=== PATIENT | male | born 1960 | race Caucasian/White ===

== ENCOUNTER 2016-10-18 05:47 | Inpatient (IN) | payer OTHER ==
[~2016-10-18] VITALS: Ht 180.3 cm; Wt 93.3 kg
[2016-10-18] MEDS ORDERED: ACETAMINOPHEN 325 MG TAB PO STA (06:00)
[2016-10-18] MEDS ORDERED: SODIUM CHLORIDE 0.9% 1L BAG IV* STA (06:00)
[2016-10-18] MEDS ORDERED: METHYLPREDNISOLONE 125 MG INJ IV STA (06:00)
[2016-10-18] MEDS ORDERED: LEVOFLOXACIN 750MG/D5W (PMX) 150 ML IVPB ONE (06:00)
[2016-10-18] MEDS ORDERED: ALBUTEROL 0.5% (NEB) 2.5 MG/0.5 ML AMP INH STA (06:00)
[2016-10-18] MEDS ORDERED: IPRATROPIUM (NEB) 0.5 MG/2.5 ML AMP INH STA (06:00)
--- NOTE | 2016-10-18 06:06 | ERA ---
ER Documentation Chief Complaint Date/Time DATE: 10/18/16 TIME: 06:04 Chief Complaint SOB w/ productive cough x 4 days HPI 55-year-old male with an existing history of COPD presents to the emergency department by ambulance complaining of shortness of breath. Patient states he has been having increasing cough and shortness of breath for the last 4 days. Over the last 24 hours, he developed a cough. He has sputum which is nonbloody. He denies chest pain. Patient has no further discomfort. ROS All systems reviewed and are negative except as per history of present illness. Allergies Allergies: Coded Allergies: No Known Drug Allergies (Verified Allergy, Unknown, 10/18/16) FmHx Noncontributory for chief complaint Physical Exam Vitals Vital Signs Date Time Temp Pulse Resp B/P Pulse Ox O2 Delivery O2 Flow Rate FiO2 10/18/16 06:30 124 24 178/102 99 Mask 8.0 10/18/16 06:22 Non Rebreather 10/18/16 06:22 Non Rebreather 10/18/16 06:20 126 28 100 Non Rebreather Mask 15.0 100 10/18/16 05:54 104.3 123 22 149/88 96 Physical Exam GENERAL: Patient is well-developed and well-nourished. He is in moderate to significant respiratory distress HEENT: Pupils equal, round, and reactive to light. EOMI. There is no scleral icterus. NECK: C-spine is soft and supple, there is no meningismus. There is no cervical lymphadenopathy. No tracheal deviation or stridor LUNGS: Patient has increased work of breathing. Patient is tachypneic. Patient is wheezing bilaterally. There is rhonchi bilaterally. There is decreased tidal volume. HEART: Regular rate and rhythm, no murmurs, clicks, rubs or gallops. ABDOMEN: Soft, non-tender, non-distended. There are bowel sounds in all four quadrants. No rebound or guarding. EXTREMITIES: There is no peripheral cyanosis or edema. No focal swelling or erythema. NEURO: The patient moves all four extremities with 5/5 strength. Cranial nerves II - XII are intact. Normal gait. Alert and oriented SKIN: There is no apparent rash or petechiae. HEME/LYMPHATIC: There is no evidence of excessive bruising or lymphedema. PSYCHIATRIC: The patient does not appear anxious or depressed. Result Diagram: 10/18/16 0609 10/18/16 0609 Results 24 hrs Laboratory Tests Test 10/18/16 06:00 10/18/16 06:09 10/18/16 08:12 Arterial Blood HCO3 25.2mmol/L Arterial Blood Base Excess 0mmol/L Arterial Blood Oxygen Saturation 99.5mmHG Martin Test N/A Arterial Blood Gas Puncture Site Right Brachial Arterial Blood Carboxyhemoglobin 0.4% Arterial Blood Date Drawn 10/18/2016 6:20:47 AM Arterial Blood Methemoglobin 0.3% Arterial Blood pCO2 (Temp correct) 43.0mmhg Arterial Blood pH (Temp corrected) 7.386 Arterial Blood pO2 (Temp corrected) 367.4mmHG Blood Gas A-a O2 Differential 302.6mmHg Blood Gas Actual Respiration Rate 28 Blood Gas Critical Value Read Back Mayco BETH Blood Gas Modality MASK - NRB Blood Gas Notified Time 10/18/2016 6:30:55 AM Blood Gas Notified Whom BL Blood Gas Specimen Source Blood arterial Blood Gas Temperature 37.0C FiO2 100.0% Oxyhemoglobin Percent 98.8% Total Hemoglobin 15.6g/dl Activated Partial Thromboplast Time 34.5Sec Alanine Aminotransferase (ALT/SGPT) 55IU/L Albumin 4.0g/dl Albumin/Globulin Ratio 1.21 Alkaline Phosphatase 72IU/L Anion Gap 15 Aspartate Amino Transf (AST/SGOT) 43IU/L Basophils # 0.010^3/ul Basophils % 0.1% Blood Morphology Comment Blood Urea Nitrogen 13mg/dl Calcium Level 9.0mg/dl Carbon Dioxide Level 27mmol/L Chloride Level 103mmol/L Creatinine 1.14mg/dl Direct Bilirubin 0.00mg/dl Eosinophils # 0.010^3/ul Eosinophils % 0.5% Globulin 3.30g/dl Glucose Level 123mg/dl Hematocrit 46.2% Hemoglobin 15.6g/dl INR International Normalized Ratio 1.16 Indirect Bilirubin 0.2mg/dl Lactic Acid Level 1.6mmol/L 1.3mmol/L Lymphocytes # 0.410^3/ul Lymphocytes % 3.9% Mean Corpuscular Hemoglobin 30.7pg Mean Corpuscular Hemoglobin Concent 33.8g/dl Mean Corpuscular Volume 90.8fl Mean Platelet Volume 9.2fl Monocytes # 0.810^3/ul Monocytes % 7.9% Neutrophils # 8.710^3/ul Neutrophils % 87.6% Nucleated Red Blood Cells # 0.010^3/ul Nucleated Red Blood Cells % 0.0/100WBC Platelet Count 75927^3/UL Potassium Level 4.0mmol/L Prothrombin Time 14.8Sec Prothrombin Time Ratio 1.2 Red Blood Count 5.0910^6/ul Red Cell Distribution Width 15.0% Sodium Level 141mmol/L Total Bilirubin 0.2mg/dl Total Protein 7.3g/dl Troponin I 0.019ng/ml Urine Bilirubin NEGATIVE Urine Clarity CLEAR Urine Color LT. YELLOW Urine Glucose NEGATIVE% Urine Hemoglobin NEGATIVE Urine Ketones NEGATIVE Urine Leukocyte Esterase NEGATIVE Urine Nitrite NEGATIVE Urine Specific [place] 1.015 Urine Total Protein NEGATIVE Urine Urobilinogen 0.2 E.U./dL Urine pH 7.0 White Blood Count 9.910^3/ul Current Medications Medications (Trade) Dose Ordered Sig/Uma Route PRN Reason Start Time Stop Time Status Last Admin Dose Admin Sodium Chloride (NS) 2,820 ml BOLUS OVER 2 HOURS STAT IV* 10/18/16 06:00 10/18/16 06:03 DC 10/18/16 06:17 Acetaminophen 650 mg 650 mg ONCE STAT PO 10/18/16 06:00 10/18/16 06:04 DC 10/18/16 06:17 Levofloxacin/ Dextrose (Levaquin 750 Mg/ D5W 150 ml (Pmx)) 150 ml @ 100 mls/hr ONCE ONCE IVPB 10/18/16 06:00 10/18/16 07:29 DC 10/18/16 06:58 Albuterol (Proventil 0.5% (Neb)) 10 mg ONCE STAT INH 10/18/16 06:00 10/18/16 06:04 DC 10/18/16 06:15 Ipratropium [place] (Atrovent 0.02% (Neb)) 1 mg ONCE STAT INH 10/18/16 06:00 10/18/16 06:04 DC 10/18/16 06:15 Methylprednisolone Sodium Succinate (Solu-Medrol) 125 mg ONCE STAT IV 10/18/16 06:00 10/18/16 06:04 DC 10/18/16 06:16 Procedures/MDM Patient was taken to a room, seen and evaluated. Comfort measures were initiated. Diagnostic tests were ordered and reviewed. 3 LEAD RHYTHM STRIP: Sinus tachycardia without ectopy EK lead EKG reviewed by myself: Sinus tachycardia Left axis deviation, right bundle branch block Nonspecific ST and T-wave changes without ST elevation Impression: Nondiagnostic EKG RADIOLOGY: reviewed with the radiologist CONSULTATION: hospitalist was notified for admission REEVALUATION: Patient improved with breathing treatments. He remained hemodynamically stable, tachycardic consistent with a sepsis. Arrangements were made for admission MEDICAL DECISION MAKING: Patient presents for shortness of breath. Differential diagnosis entertained included asthma, pneumonia, other cardiac and pulmonary concerns. After reviewing the patient's diagnostic tests and clinical presentation, patient appears to have a community-acquired pneumonia complicated by a COPD exacerbation and a sepsis. Patient is required respiratory support with albuterol and Atrovent, but has not required intubation or BiPAP at this time. Patient's respiratory status is improving with these interventions. Patient is also required antipyretics and fluids as well as antibiotics for what appears to be a sepsis. His lactate is not elevated above 2 and he seems to be improving overall. Patient will be admitted to the medical surgical unit for further observation, IV fluids, antibiotics, respiratory support. CRITICAL CARE: Time:>35 minutes Patient has a significant chance of clinical deterioration Treatments/Evaluations: Close monitoring and treatment of unstable vital signs, cardiovascular, respiratory support Departure Diagnosis: Primary Impression: Respiratory failure Additional Impressions: Pneumonia Sepsis Condition: Serious MICHELLEDIANA Oct 18, 2016 06:06
[2016-10-18 06:31] LABS: AADO2 Arterial 302.6 mmHg (7.0-24.0); Arterial Base Excess 0 mmol/L (-3.0-3); Arterial COHb 0.4 % (0.0-3.0); Arterial Fraction of Oxyhgb 98.8 % (93.0-99.0); Arterial HCO3 25.2 mmol/L (22.0-26.0); Arterial MetHb 0.3 % (0.0-1.5); Arterial Total Hemglobin 15.6 g/dl (12.0-18.0); MODE MASK - NRB
[2016-10-18 06:36] LABS: BASOPHILS % 0.1 % (0.0-2.0); EOSINOPHILS % 0.5 % (0.0-7.0); HEMATOCRIT 46.2 % (42.0-52.0); HEMOGLOBIN 15.6 g/dl (14.0-18.0); LYMPHOCYTES # 0.4 10^3/ul (0.8-2.9); LYMPHOCYTES % 3.9 % (15.0-51.0); MEAN CORPUSCULAR HEMOGLOBIN 30.7 pg (29.0-33.0); MEAN CORPUSCULAR HGB CONC 33.8 g/dl (32.0-37.0); MEAN CORPUSCULAR VOLUME 90.8 fl (82.0-101.0); MEAN PLATELET VOLUME 9.2 fl (7.4-10.4); MONOCYTE # 0.8 10^3/ul (0.3-0.9); MONOCYTES % 7.9 % (0.0-11.0); NEUTROPHIL # 8.7 10^3/ul (1.6-7.5); NEUTROPHILS % 87.6 % (39.0-77.0); PLATELET COUNT 158 10^3/UL (140-440); RED BLOOD COUNT 5.09 10^6/ul (4.70-6.10); UNCORRECTED WBC 9.9 10^3/ul (4.8-10.8); WHITE BLOOD COUNT 9.9 10^3/ul (4.8-10.8)
[2016-10-18 06:40] LABS: INR 1.16; PROTIME 14.8 Sec (12.2-14.2); PT RATIO 1.2
[2016-10-18 06:41] LABS: PARTIAL THROMBOPLASTIN TIME 34.5 Sec (25.0-35.0)
[2016-10-18 06:47] LABS: CONDITION 1; LH ANALYZER COMMENTS 1
[2016-10-18 06:48] LABS: ALBUMIN/GLOBULIN RATIO 1.21; BILIRUBIN,INDIRECT 0.2 mg/dl (0-1.1); BILIRUBIN,TOTAL 0.2 mg/dl (0.2-1.3); CREATININE 1.14 mg/dl (0.61-1.24); TOTAL PROTEIN 7.3 g/dl (6.1-8.1)
--- NOTE | 2016-10-18 06:49 | RADRPT ---
PROCEDURE: Chest. CLINICAL INDICATION: Cough. TECHNIQUE: Single frontal view of the chest was obtained. COMPARISON: None. FINDINGS: The cardiac silhouette is within normal limits. The aortic arch is unremarkable. There is bilatera l upper lobe scarring. There is left apical pleural thickening. There is no vascular congestion or pleural effusion. There is no pneumothorax. IMPRESSION: Bilateral upper lobe scarring and left apical pleural thickening. Superimposed acute process cannot be excluded. .Hugh Orozco MD, Date Time Electronically viewed and signed by .Hugh Orozco MD, on 10/18/2016 06:49 .T/
[2016-10-18 06:53] LABS: ADD UMIC NO; URINE BILIRUBIN (Dip) NEGATIVE (NEGATIVE); URINE BLOOD (Dip) NEGATIVE (NEGATIVE); URINE COLOR LT. YELLOW (YELLOW); URINE GLUCOSE (Dip) NEGATIVE (NEGATIVE); URINE KETONES (Dip) NEGATIVE (NEGATIVE); URINE LEUKOCYTE ESTERASE (Dip) NEGATIVE (NEGATIVE); URINE NITRITE (Dip) NEGATIVE (NEGATIVE); URINE TOTAL PROTEIN (Dip) NEGATIVE (NEGATIVE); URINE UROBILINOGEN (Dip) 0.2 E.U./dL (0.1-1.0)
[2016-10-18 06:59] LABS: TROPONIN-I 0.019 ng/ml (0.00-0.12)
[2016-10-18] MEDS ORDERED: ACETAMINOPHEN 650 MG SUPP PR PRN (09:00)
[2016-10-18] MEDS ORDERED: ONDANSETRON 4 MG INJ IV PRN (09:00)
[2016-10-18] MEDS ORDERED: AZITHROMYCIN 500MG/NS (PMX) 250 ML IVPB SCH (09:00)
[2016-10-18] MEDS ORDERED: MAGNESIUM HYDROXIDE 30ML CUP PO PRN (09:00)
[2016-10-18] MEDS ORDERED: BISACODYL 10 MG SUPP PR PRN (09:00)
[2016-10-18] MEDS ORDERED: NACL 0.9% 3 ML SYG IV SCH (09:00)
[2016-10-18] MEDS ORDERED: ACETAMINOPHEN 325 MG TAB PO PRN (09:00)
[2016-10-18] MEDS ORDERED: DOCUSATE SODIUM 100 MG CAP PO PRN (09:00)
--- NOTE | 2016-10-18 09:44 | HP ---
Date/Time of Note Date/Time of Note DATE: 10/18/16 TIME: 09:37 Assessment/Plan VTE Prophylaxis VTE Prophylaxis Intervention: SCD's Assessment/Plan Chief Complaint/Hosp Course Assessment and plan 1. COPD exacerbation. Continue with bronchodilators. We'll also start on steroid. Titrate down O2 as tolerated. 2. Sepsis pneumonia. Patient noted with x-ray with current picture of pneumonia. Still with noted productive cough. We'll continue antibiotics. Also patient with elevated white count and fever. We'll provide with antipyretics as needed 3. Homeless status. 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 4. Accelerated hypertension. We'll continue on anti-hypertensives and adjust needed 5. History of dyslipidemia. We'll follow-up fasting lipid panel 6. Cigarette smoker. Cessation advised Admission process time is 40 minutes Discussed plan care of Dr Plaza. Problems: HPI/ROS Admit Date/Time Admit Date/Time Hx of Present Illness This is a 55-year-old male with history of hypertension, dyslipidemia, COPD, came to [facility] due to reports of shortness of breath. According to the patient he had been having increased shortness of breath for 2 days' duration. He did report having some associated cough with whitish productive phlegm. He denied any chest pain or any fevers. Of note patient does state that he is homeless. He did come to [facility] due to the aforementioned issues. Upon further examination he did have chest x-ray that did show bilateral upper lobe scarring and left apical pleural thickening and suspect superimposed acute process. He did initially have a temperature as high as 104.3 on admission and he was tachycardic as well. His blood pressure was also size 170/102. He was reported to be hypoxic on room air with O2 sat in the 80s. He was afterwards placed on several mass and provided with DuoNeb therapy as well as steroid. He did tolerate well. No leukocytosis noted. Currently he does state his breathing is a little bit better. He still reports having some cough. We will provide him for the aforementioned issues ROS 12 point review of systems obtain an entirely negative except that mentioned in history of present illness PMH/Family/Social Past Medical History Medical/surgical history hypertension, dyslipidemia, COPD Family History Significant Family History: no pertinent family hx Social History Smoking Status: Current every day smoker Drug Use: other (reports having used marijuana as well as amphetamines in the past) Exam/Review of Systems Vital Signs Vitals Vital Signs Date Time Temp Pulse Resp B/P Pulse Ox O2 Delivery O2 Flow Rate FiO2 10/18/16 06:30 124 24 178/102 99 Mask 8.0 10/18/16 06:20 100 10/18/16 05:54 104.3 Exam Exam General: No acute signs or symptoms of distress Eyes: pupils equal round, Anicteric sclera Neck: Supple nontender, no JVD Cardiac: S1, S2 auscultated, regular rhythm and rate Pulmonary: Diminished lung sounds bilaterally GI: Abdomen soft nontender nondistended, bowel sounds active Extremities: No edema bilateral lower extremities Skin: Clean dry and intact Neurologic: Alert to person place and time and situation Labs Result Diagram: 10/18/1660810/18/16608 Medications Medications Current Medications Ceftriaxone Sodium 50 ml @ 100 mls/hr DAILY IVPB ; Start 10/18/16 at 09:00 Azithromycin (Zithromax 500mg/ NS (Pmx)) 250 ml @ 250 mls/hr DAILY IVPB ; Start 10/18/16 at 09:00 Ondansetron HCl (Zofran Inj) 4 mg Q6H PRN IV NAUSEA AND/OR VOMITING; Start 10/18 at 09:00 Acetaminophen (Tylenol Tab) 650 mg Q6H PRN PO PAIN LEVEL 1-3 OR FEVER; Start at 09:00 Acetaminophen (Tylenol Supp) 650 mg Q6H PRN MT PAIN LEVEL 1-3 OR FEVER; Start 10/18/16 at 09:00 Acetaminophen/ Hydrocodone Bitart ([place] (5/325)) 1 tab Q6H PRN PO MODERATE PAIN LEVEL 4-6; Start 10/18/16 at 09:00 Acetaminophen/ Hydrocodone Bitart ([place] (5/325)) 2 tab Q6H PRN PO SEVERE PAIN LEVEL 7-10; Start 10/18/16 at 09:00 Morphine Sulfate (morphine) 2 mg Q4H PRN IV SEVERE PAIN LEVEL 7-10; Start at 09:00 Docusate Sodium (Colace) 100 mg Q12H PRN PO CONSTIPATION; Start 10/18/16 at 09: 00 Magnesium Hydroxide (Milk Of Mag) 30 ml DAILY PRN PO CONSTIPATION; Start at 09:00 Bisacodyl (Dulcolax Supp) 10 mg DAILY PRN MT CONSTIPATION; Start 10/18/16 at 09: 00 Famotidine (Pepcid Iv) 20 mg Q12 IV ; Start 10/18/16 at 09:00 Methylprednisolone Sodium Succinate (Solu-Medrol) 60 mg BID IV ; Start 10/18/16 at 21:00 ASH SHEEHAN Oct 18, 2016 09:43
[2016-10-18] MEDS ORDERED: hydrALAzine 20 MG INJ IV PRN (10:00)
[2016-10-18] MEDS ORDERED: IPRA4AER INHALATION (10:15)
[2016-10-18] MEDS ORDERED: AMLO5TAB4 PO (10:15)
[2016-10-18 10:31] LABS: CK-MB 5.56 ng/ml (0.0-2.4)
[2016-10-18 10:32] LABS: TROPONIN-I 0.029 ng/ml (0.00-0.12)
[2016-10-18] MEDS: FAMOTIDINE 20 MG INJ IV SCH ×2 (12:19→21:55)
[2016-10-18] MEDS: IPRATROPIUM (NEB) 0.5 MG/2.5 ML AMP HHN SCH ×2 (12:45→21:36)
[2016-10-18] MEDS: CEFTRIAXONE 2 GM/50 ML (PMX) 50 ML IVPB SCH (15:10)
[2016-10-18] MEDS: AMLODIPINE 5 MG TAB PO SCH ×2 (15:11→21:59)
[2016-10-18] MEDS: LEVALBUTEROL (HFA) 15 GM INHALER INH SCH ×2 (15:13→21:55)
[2016-10-18 15:50] LABS: CK-MB 9.43 ng/ml (0.0-2.4)
[2016-10-18 15:52] LABS: TROPONIN-I 0.015 ng/ml (0.00-0.12)
[2016-10-18 16:52] VITALS: TEMP 98.9
[2016-10-18 17:16] VITALS: Ht 180.3 cm; Wt 93.3 kg
[2016-10-18 17:39] VITALS: BP 142/84; PULSE 107; RESP 20
[2016-10-18] MEDS: morphine 2 MG INJ IV PRN (18:38)
[2016-10-18 20:00] VITALS: BP 145/87; RESP 20
[2016-10-18] MEDS: METHYLPREDNISOLONE 125 MG INJ IV SCH (21:55)
[2016-10-18] MEDS: HYDROCODONE/APAP (5/325) TAB PO PRN (22:14)
[2016-10-19] MEDS: IPRATROPIUM (NEB) 0.5 MG/2.5 ML AMP HHN SCH ×4 (02:30→19:18)
[2016-10-19] MEDS: LEVALBUTEROL (HFA) 15 GM INHALER INH SCH ×4 (03:11→20:00)
[2016-10-19 06:30] LABS: POTASSIUM 4.7 mmol/L (3.5-5.1)
[2016-10-19 06:32] LABS: ALBUMIN/GLOBULIN RATIO 1.17; CREATININE 1.07 mg/dl (0.61-1.24); TOTAL PROTEIN 7.4 g/dl (6.1-8.1)
[2016-10-19 06:33] LABS: CALCIUM 8.8 mg/dl (8.4-10.2); PHOSPHORUS 2.6 mg/dl (2.5-4.9)
[2016-10-19 06:34] LABS: CHOL/HDL RATIO 3.3 RATIO
[2016-10-19 06:45] LABS: T3 UPTAKE 33.8 % (23.5-40.5)
[2016-10-19 06:59] LABS: THYROID STIMULATING HORMONE 1.36 MIU/L (0.465-4.680)
[2016-10-19] MEDS ORDERED: VANCOMYCIN IV PER PHARMACY XX SCH (07:00)
[2016-10-19 07:32] VITALS: BP 142/77; RESP 22
[2016-10-19] MEDS ORDERED: VANCOMYCIN 1.75 GM in NS 500 ML IVPB SCH (08:30)
[2016-10-19] MEDS: METHYLPREDNISOLONE 125 MG INJ IV SCH ×2 (08:37→21:04)
[2016-10-19] MEDS: FAMOTIDINE 20 MG INJ IV SCH (08:37)
[2016-10-19] MEDS: AMLODIPINE 5 MG TAB PO SCH ×2 (08:38→21:07)
[2016-10-19] MEDS: CEFTRIAXONE 2 GM/50 ML (PMX) 50 ML IVPB SCH (09:36)
[2016-10-19] MEDS: morphine 2 MG INJ IV PRN ×2 (10:27→19:44)
[2016-10-19] MEDS ORDERED: DEXTROSE 50% 50 ML SYRINGE IV PRN ×2 (10:30)
[2016-10-19] MEDS ORDERED: GLUCOSE GEL 15 GRAM TUBE BUCCAL PRN (10:30)
[2016-10-19] MEDS ORDERED: GLUCOSE GEL 15 GRAM TUBE PO PRN ×2 (10:30)
[2016-10-19] MEDS ORDERED: GLUCAGON 1 MG INJ IM PRN (10:30)
--- NOTE | 2016-10-19 10:51 | PN ---
DATE: 10/19/2016 SUBJECTIVE DATA: Complains of shortness of breath. The patient has frequent coughing. OBJECTIVE DATA: VITAL SIGNS: Temperature 97.6, pulse rate 104, respiratory rate 20, blood pressure 142/77, oxygen saturation 97% on low flow O2. GENERAL: This is a slightly overweight male patient who looks disheveled, sitting in a chair in mild to moderate respiratory distress. HEENT: Head normocephalic and atraumatic. Eyes: Anicteric sclerae. Conjunctivae clear. ENT: Nasal septum is midline. Oral mucosa is dry. NECK: Supple. No JVD noticed. RESPIRATORY: Bilaterally diminished breath sounds. Use of accessory muscles of respiration. Bilateral expiratory wheezing. CARDIAC: Regular rate and rhythm. No murmurs heard. ABDOMEN: Soft, nontender and nondistended. Bowel sounds positive in all 4 quadrants. GENITOURINARY: Deferred. EXTREMITIES: No cyanosis, no clubbing, no edema. Peripheral pulses are palpable. NEUROLOGIC: The patient is awake, alert and oriented. Cranial nerves are grossly intact. LABORATORY AND DIAGNOSTIC DATA: WBC 9.9. His hemoglobin 15.6, hematocrit 46.2 , platelet count 158. Sodium 142, potassium 4.7, chloride 101, carbon dioxide 27, anion gap 19, BUN 19, creatinine 1.07, glucose 193, calcium 8.8, phosphorus 2.6, magnesium 2.0. Hemoglobin A1c 6.3. Creatinine kinase 568. Troponin I 0.015. ASSESSMENT AND PLAN: 1. Chronic obstructive pulmonary disease exacerbation. Continue inhaled bronchodilators. Continue tapering dose of steroids. Continue empiric antibiotics for any underlying infectious etiology. 2. Essential hypertension. Continue antihypertensives. Blood pressure fairly controlled. 3. Pre-diabetes with a hemoglobin A1c of 6.3. The patient's random blood glucose is 193. Will start the patient on sliding scale insulin, specifically since the patient is on IV steroids that can cause hyperglycemia. 4. Mild rhabdomyolysis. Renal function is within normal limits. Continue to monitor. 5. History of dyslipidemia. Fasting lipid panel satisfactory. 6. Nicotine use. Cessation advised. 7. Homeless status. Social work consult obtained. 8. Fluid, electrolytes and nutrition. Regular diet. 9. Deep venous thrombosis prophylaxis. Bilateral sequential compression devices. 10. Gastrointestinal prophylaxis with histamine 2 receptor blockers. 11. Plan: Continue tapering dose of steroids. Continue empiric antibiotics. Will obtain a pulmonary consult. Will start the patient on maintenance inhalers. We will obtain a CT scan of the chest to further evaluate the chest x -ray findings. Case discussed with Dr. Phan. KAMALA PHAN MD, AM/MIKA Conf#: [id number] DID#: [id number] MTDD
[2016-10-19] MEDS ORDERED: IOHEXOL 350MG/ML 50 ML BTL ONE (11:12)
[2016-10-19] MEDS ORDERED: SOD CHLORIDE 0.9% 100 ML ONE (11:12)
[2016-10-19] MEDS ORDERED: IOHEXOL 100 ML ONE (11:12)
[2016-10-19] MEDS: INSULIN ASPART [NOVOLOG] 3 ML PEN SC SCH ×3 (12:11→21:00)
--- NOTE | 2016-10-19 13:05 | RADRPT ---
PROCEDURE: CTA Chest. CLINICAL INDICATION: R/O PE TECHNIQUE: The study was performed utilizing a a multidetector CT scanner. Direct spiral 1.25 axia l sections were obtained from the thoracic inlet to the upper abdomen with the use of 100 cc of Omni paque 350 nonionic intravenous contrast material and reformatted at 3 mm. Coronal reformations were obtained. The images were reviewed on a PACS workstation. CT D I 28 mCi. Dose 694 mCi per centimeter COMPARISON: Chest x-ray October 18 FINDINGS: There is no central or peripheral pulmonary embolism. Thoracic aorta is normal with no dissection o r aneurysm. There are coronary artery calcifications. No hilar or mediastinal adenopathy or masses present. There is a tiny pericardial effusion. No pleural effusion is identified. There is bullo us disease in the lungs most pronounced in the upper lobes where there is associated bronchiectasis and pleural thickening. Fibrotic scarring is seen in both upper lobes. There is partial collapse o f the left upper lobe. No mass or adenopathy is identified. No alveolar infiltrate is detected. No upper abdominal or adrenal mass is seen. The osseous structures are intact. IMPRESSION: No pulmonary embolism. No aortic dissection or aneurysm. Emphysema. Biapical fibrosis with bronchiectasis. Question old tuberculosis. No pneumonia or lung mass. Tiny pericardial effusion. .Erick Husain MD, MD Date Time Electronically viewed and signed by .Erick Husain MD, on 10/19/2016 13:05 .A/
--- NOTE | 2016-10-19 16:14 | CONS ---
DATE OF ADMISSION: 10/18/2016 DATE OF CONSULTATION: 10/19/2016 REASON FOR CONSULTATION: Shortness of breath. Thank you, Dr. Phan, for this consultation. HISTORY OF PRESENT ILLNESS: This is a 55-year-old gentleman with history of hypertension and hyperl ipidemia who presented to the hospital with a several-day history of increasing shortness of breath, cough. No fever, no chills, no chest pain or palpitations. No orthopnea or PND. On admission. H e did, however, have a fever of 104 with mild hypoxemia requiring supplemental O2. Patient has a po sitive tobacco history. Denies any history of intravenous drug use; however, has a history of marij uana and amphetamine use. PAST MEDICAL HISTORY: Hypertension, hyperlipidemia, positive tobacco history, probable COPD. MEDICATIONS: Per chart. ALLERGIES: NONE. SOCIAL HISTORY: Positive alcohol history as above. PHYSICAL EXAMINATION: GENERAL: Well-nourished, well-developed gentleman, comfortable at rest, no acute distress. VITAL SIGNS: Currently afebrile, pulse is 100, blood pressure 140/77, O2 saturation 96% on 2 L nasa l cannula. NECK: Supple. No JVD or lymphadenopathy. CARDIAC: S1, S2, no added sounds or murmurs. CHEST: Diminished air entry bilaterally. ABDOMEN: Soft, nontender. No guarding or rebound. EXTREMITIES: No cyanosis, clubbing, edema. NEUROLOGIC: Grossly intact. No focal deficits. LABORATORIES: White count 9.9, hemoglobin 15.6. Chemistry within normal limits. INR: Elevated cr eatinine kinase. Urinalysis unremarkable. Chest x-ray was reviewed, showed bilateral apical scarri ng. DIAGNOSTIC STUDIES: Chest CT was performed and demonstrated ____ bronchiectasis, questionable old T B. IMPRESSION AND PLAN: 1. Chronic obstructive pulmonary disease with exacerbation. 2. Possible acute tracheobronchitis. 3. Patient is homeless. The patient will require: 1. Continued bronchodilators. 2. Supplemental O2. 3. Steroid taper. 4. Anticipate discharge soon. Dictated By: MARCO DESIR/MIKA Conf#: [id number] DID#: [id number]
[2016-10-19 19:00] VITALS: BP 158/93; RESP 22
[2016-10-19 20:37] LABS: COCAINE Negative (NEGATIVE)
[2016-10-19 20:40] LABS: BARBITURATES Negative (NEGATIVE); BENZODIAZEPINES Negative (NEGATIVE); CANNABINOIDS Negative (NEGATIVE)
[2016-10-19 20:43] LABS: OPIATES Positive (NEGATIVE)
[2016-10-19] MEDS: SALMETEROL/FLUTICASONE 250/50 INHA INH SCH (21:03)
[2016-10-19] MEDS: FAMOTIDINE 20 MG TAB PO SCH (21:07)
[2016-10-19] MEDS: VANCOMYCIN 1.25 GM in SOD CHLORIDE 0.9% 250 ML IVPB SCH (21:42)
[2016-10-19] MEDS: HYDROCODONE/APAP (5/325) TAB PO PRN (21:50)
[2016-10-20] MEDS: IPRATROPIUM (NEB) 0.5 MG/2.5 ML AMP HHN SCH ×4 (01:03→20:00)
[2016-10-20] MEDS: ACCUCHECK XX SCH (02:00)
[2016-10-20] MEDS: LEVALBUTEROL (HFA) 15 GM INHALER INH SCH ×4 (02:00→20:00)
[2016-10-20] MEDS: morphine 2 MG INJ IV PRN ×4 (06:41→20:59)
[2016-10-20 06:51] LABS: BASOPHIL # 0.1 10^3/ul (0.0-0.1); BASOPHILS % 0.4 % (0.0-2.0); HEMOGLOBIN 14.2 g/dl (14.0-18.0); LYMPHOCYTES # 0.4 10^3/ul (0.8-2.9); LYMPHOCYTES % 2.3 % (15.0-51.0); MEAN CORPUSCULAR HEMOGLOBIN 31.3 pg (29.0-33.0); MEAN CORPUSCULAR HGB CONC 33.8 g/dl (32.0-37.0); MEAN CORPUSCULAR VOLUME 92.4 fl (82.0-101.0); MEAN PLATELET VOLUME 9.4 fl (7.4-10.4); MONOCYTE # 0.6 10^3/ul (0.3-0.9); MONOCYTES % 3.3 % (0.0-11.0); PLATELET COUNT 160 10^3/UL (140-440); RED BLOOD COUNT 4.55 10^6/ul (4.70-6.10); RED CELL DISTRIBUTION WIDTH 15.3 % (11.5-14.5)
[2016-10-20 07:17] LABS: MAGNESIUM 2.2 mg/dl (1.7-2.5); PHOSPHORUS 4.2 mg/dl (2.5-4.9)
[2016-10-20 07:19] LABS: POTASSIUM 5.2 mmol/L (3.5-5.1)
[2016-10-20 07:21] LABS: CREATININE 1.04 mg/dl (0.61-1.24)
[2016-10-20 07:22] LABS: CALCIUM 8.8 mg/dl (8.4-10.2)
[2016-10-20 07:27] LABS: CONDITION 1; LH ANALYZER COMMENTS 1
[2016-10-20 07:38] VITALS: BP 152/84; RESP 22
[2016-10-20] MEDS: SALMETEROL/FLUTICASONE 250/50 INHA INH SCH ×2 (08:08→20:49)
[2016-10-20] MEDS: AMLODIPINE 5 MG TAB PO SCH ×2 (08:08→20:50)
[2016-10-20] MEDS: FAMOTIDINE 20 MG TAB PO SCH ×2 (08:08→20:50)
[2016-10-20] MEDS: METHYLPREDNISOLONE 125 MG INJ IV SCH ×3 (08:09→17:35)
[2016-10-20] MEDS: CEFTRIAXONE 2 GM/50 ML (PMX) 50 ML IVPB SCH (08:09)
[2016-10-20] MEDS: INSULIN ASPART [NOVOLOG] 3 ML PEN SC SCH ×4 (08:17→20:54)
[2016-10-20] MEDS: HYDROCODONE/APAP (5/325) TAB PO PRN (08:19)
[2016-10-20] MEDS ORDERED: INFLUENZA VIRUS VACCINE 0.5 ML (DISPENSING) IM* ONE (09:00)
--- NOTE | 2016-10-20 09:17 | CONS ---
Date/Time of Note Date/Time of Note DATE: 10/20/16 TIME: 09:13 Assessment/Plan Assessment/Plan Additional Assessment/Plan Assessment and recommendation; 1. Patient admitted with COPD exacerbation and acute bronchitis. Next 2. Severe bullous emphysema. Next 3. Leukocytosis likely a steroid response. 4. Gram-positive bacteremia. Continue current treatment for now. Consultation Date/Type/Reason Admit Date/Time Oct 18, 2016 at 08:40 Initial Consult Date Type of Consultation: Pulmonary 24 HR Interval Summary Free Text/Dictation Patient condition is slightly improved according to him he is not more than 10% better still complains of wheezing which is a chronic complaint lasting several years now. Complains of mild cough denies any chest pain, fever, chills. General examination; middle-aged man currently in no distress sitting in a chair by bedside. Exam/Review of Systems Vital Signs Vitals Vital Signs Date Time Temp Pulse Resp B/P Pulse Ox O2 Delivery O2 Flow Rate FiO2 10/20/16 07:38 98.5 85 22 152/84 99 10/20/16 01:06 Nasal Cannula 2.0 10/18/16 13:13 97 Intake and Output 10/19/16 10/19/16 10/20/16 15:00 23:00 07:00 Intake Total 50 ml 2023.33 ml 643.33 ml Output Total 1350 ml 1200 ml Balance 50 ml 673.33 ml -556.67 ml Exam H EENT examination; supple neck, no lymphadenopathy. JVD difficult to see because of thick negron. Pharynx is clear no neck masses. Chest examination; poor breath sounds bilaterally with diffuse bilateral wheezing. S1-S2 audible, no murmurs. Regular rate and rhythm. Abdomen examination; soft, protuberant, nontender. Bowel sounds audible. No organomegaly felt. Extremity examination; no peripheral edema. There is no clubbing. INSPECTOR AND SORTER examination; no focal deficit. Results Result Diagram: 10/20/16 0550 10/20/16 0550 Results 24 hrs Laboratory Tests Test 10/19/16 11:58 10/19/16 17:14 10/19/16 19:05 10/19/16 21:02 Bedside Glucose 156 137 140 Urine Amphetamines Screen Negative Urine Barbiturates Negative Urine Benzodiazepines Screen Negative Urine Cannabinoids Negative Urine Cocaine Screen Negative Urine Opiates Screen Positive Test 10/20/16 05:50 10/20/16 07:42 Anion Gap 15 Basophils # 0.1 Basophils % 0.4 Blood Morphology Comment Blood Urea Nitrogen 24 H Calcium Level 8.8 Carbon Dioxide Level 32 H Chloride Level 97 Creatinine 1.04 Eosinophils # 0.0 Eosinophils % 0.0 Glucose Level 163 Hematocrit 42.0 Hemoglobin 14.2 Lymphocytes # 0.4 L Lymphocytes % 2.3 L Magnesium Level 2.2 Mean Corpuscular Hemoglobin 31.3 Mean Corpuscular Hemoglobin Concent 33.8 Mean Corpuscular Volume 92.4 Mean Platelet Volume 9.4 Monocytes # 0.6 Monocytes % 3.3 Neutrophils # 16.0 H Neutrophils % 94.0 H Nucleated Red Blood Cells # 0.0 Nucleated Red Blood Cells % 0.0 Phosphorus Level 4.2 Platelet Count 160 Potassium Level 5.2 H Red Blood Count 4.55 L Red Cell Distribution Width 15.3 H Sodium Level 139 White Blood Count 17.0 #H Bedside Glucose 156 Medications Medications Current Medications Ceftriaxone Sodium (Rocephin) 50 ml @ 100 mls/hr DAILY IVPB Last administered on 10/20/16 08:09; Admin Dose 100 MLS/HR; Start 10/18/16 at 09:00 Ondansetron HCl (Zofran Inj) 4 mg Q6H PRN IV NAUSEA AND/OR VOMITING; Start 10/18 at 09:00 Acetaminophen (Tylenol Tab) 650 mg Q6H PRN PO PAIN LEVEL 1-3 OR FEVER; Start at 09:00 Acetaminophen (Tylenol Supp) 650 mg Q6H PRN [place] PAIN LEVEL 1-3 OR FEVER; Start 10/18/16 at 09:00 Acetaminophen/ Hydrocodone Bitart ([place] (5/325)) 1 tab Q6H PRN PO MODERATE PAIN LEVEL 4-6 Last administered on 10/18/16 22:14; Admin Dose 1 TAB; Start 10/18 at 09:00 Acetaminophen/ Hydrocodone Bitart ([place] (5/325)) 2 tab Q6H PRN PO SEVERE PAIN LEVEL 7-10 Last administered on 10/20/16 08:19; Admin Dose 2 TAB; Start 10/18/16 at 09:00 Morphine Sulfate (morphine) 2 mg Q4H PRN IV SEVERE PAIN LEVEL 7-10 Last administered on 10/20/16 06:41; Admin Dose 2 MG; Start 10/18/16 at 09:00 Docusate Sodium (Colace) 100 mg Q12H PRN PO CONSTIPATION Last administered on 15:10; Admin Dose 100 MG; Start 10/18/16 at 09:00 Magnesium Hydroxide (Milk Of Mag) 30 ml DAILY PRN PO CONSTIPATION; Start at 09:00 Bisacodyl (Dulcolax Supp) 10 mg DAILY PRN [place] CONSTIPATION; Start 10/18/16 at 09: 00 Methylprednisolone Sodium Succinate (Solu-Medrol) 60 mg BID IV Last administered on 10/20/16 08:09; Admin Dose 60 MG; Start 10/18/16 at 21:00 Amlodipine Besylate (Norvasc) 5 mg BID PO Last administered on 10/20/16 08:08; Admin Dose 5 MG; Start 10/18/16 at 10:00 Hydralazine HCl 10 mg 10 mg Q4 PRN IV sbp>160; Start 10/18/16 at 10:00 Vancomycin HCl/ Sodium Chloride (Vancocin/NS) 250 ml @ 83.333 mls/ hr Q12H IVPB Last administered on 10/19/16 21:42; Admin Dose 83.333 MLS/HR; Start at 20:00 Salmeterol Xinafoate/ Fluticasone (Advair 250/50 Diskus) 1 inh BID INH Last administered on 10/20/16 08:08; Admin Dose 1 INH; Start 10/19/16 at 21:00 Diagnostic Test (Pha) (Accucheck) 1 ea 02 XX ; Start 10/20/16 at 02:00 Miscellaneous Information 1 ea NOTE XX ; Start 10/19/16 at 10:30 Glucose (Glutose) 15 gm Q15M PRN PO DECREASED GLUCOSE; Start 10/19/16 at 10:30 Glucose (Glutose) 22.5 gm Q15M PRN PO DECREASED GLUCOSE; Start 10/19/16 at 10:30 Dextrose (D50w Syringe) 25 ml Q15M PRN IV DECREASED GLUCOSE; Start 10/19/16 at 10:30 Dextrose (D50w Syringe) 50 ml Q15M PRN IV DECREASED GLUCOSE; Start 10/19/16 at 10:30 Glucagon (Glucagen) 1 mg Q15M PRN IM DECREASED GLUCOSE; Start 10/19/16 at 10:30 Glucose (Glutose) 15 gm Q15M PRN BUCCAL DECREASED GLUCOSE; Start 10/19/16 at 10: 30 Famotidine (Pepcid) 20 mg Q12 PO Last administered on 10/20/16 08:08; Admin Dose 20 MG; Start 10/19/16 at 21:00 DREAD SEARS Oct 20, 2016 09:17
--- NOTE | 2016-10-20 09:24 | PN ---
Date/Time of Note Date/Time of Note DATE: 10/20/16 TIME: 09:20 Assessment/Plan VTE Prophylaxis VTE Prophylaxis Intervention: SCD's Lines/Catheters IV Catheter Type [facility]from [facility] [facility] Urinary Cath still in place: No Assessment/Plan Chief Complaint/Hosp Course 1. Chronic obstructive pulmonary disease exacerbation. Continue inhaled bronchodilators. Continue tapering dose of steroids. Continue empiric antibiotics for any underlying infectious etiology. 2. Essential hypertension. Continue antihypertensives. Blood pressure fairly well controlled. 3. Pre-diabetes with a hemoglobin A1c of 6.3. Continue sliding scale insulin, specifically since the patient is on IV steroids that can cause hyperglycemia. 4. Mild rhabdomyolysis. Renal function is within normal limits. Continue to monitor. 5. Sepsis with gram-positive bacteremia. No evidence of any septic shock. Etiology unclear. Repeat blood cultures negative. Will obtain a 2D echocardiogram to evaluate for any underlying vegetation. 6. History of dyslipidemia. Fasting lipid panel satisfactory. 7. Nicotine use. Cessation advised. Refused nicotine patch. 8. Homeless status. Social work consult obtained. 9. Fluid, electrolytes and nutrition. Regular diet. 10. Deep venous thrombosis prophylaxis. Bilateral sequential compression devices. 11. Gastrointestinal prophylaxis with histamine 2 receptor blockers. 12. Plan: Continue tapering dose of steroids. Continue empiric antibiotics. Obtain 2D echocardiogram. Case discussed with Dr. Phan. Problems: Subjective 24 Hr Interval Summary Free Text/Dictation Complains of dyspnea. Denies any chest pain. Exam/Review of Systems Vital Signs Vitals Vital Signs Date Time Temp Pulse Resp B/P Pulse Ox O2 Delivery O2 Flow Rate FiO2 10/20/16 07:38 98.5 85 22 152/84 99 10/20/16 01:06 Nasal Cannula 2.0 10/18/16 13:13 97 Intake and Output 10/19/16 10/19/16 10/20/16 15:00 23:00 07:00 Intake Total 50 ml 2023.33 ml 643.33 ml Output Total 1350 ml 1200 ml Balance 50 ml 673.33 ml -556.67 ml Exam GENERAL: This is a slightly overweight male patient who looks disheveled, sitting in a chair in mild to moderate respiratory distress. HEENT: Head normocephalic and atraumatic. Eyes: Anicteric sclerae. Conjunctivae clear. ENT: Nasal septum is midline. Oral mucosa is dry. NECK: Supple. No JVD noticed. RESPIRATORY: Bilaterally diminished breath sounds. Use of accessory muscles of respiration. Bilateral expiratory wheezing. CARDIAC: Regular rate and rhythm. No murmurs heard. ABDOMEN: Soft, nontender and nondistended. Bowel sounds positive in all 4 quadrants. GENITOURINARY: Deferred. EXTREMITIES: No cyanosis, no clubbing, no edema. Peripheral pulses are palpable. NEUROLOGIC: The patient is awake, alert and oriented. Cranial nerves are grossly intact. Results Result Diagram: 10/20/16 0550 10/20/16 0550 Results 24 hrs Laboratory Tests Test 10/19/16 11:58 10/19/16 17:14 10/19/16 19:05 10/19/16 21:02 Bedside Glucose 156 137 140 Urine Amphetamines Screen Negative Urine Barbiturates Negative Urine Benzodiazepines Screen Negative Urine Cannabinoids Negative Urine Cocaine Screen Negative Urine Opiates Screen Positive Test 10/20/16 05:50 10/20/16 07:42 Anion Gap 15 Basophils # 0.1 Basophils % 0.4 Blood Morphology Comment Blood Urea Nitrogen 24 H Calcium Level 8.8 Carbon Dioxide Level 32 H Chloride Level 97 Creatinine 1.04 Eosinophils # 0.0 Eosinophils % 0.0 Glucose Level 163 Hematocrit 42.0 Hemoglobin 14.2 Lymphocytes # 0.4 L Lymphocytes % 2.3 L Magnesium Level 2.2 Mean Corpuscular Hemoglobin 31.3 Mean Corpuscular Hemoglobin Concent 33.8 Mean Corpuscular Volume 92.4 Mean Platelet Volume 9.4 Monocytes # 0.6 Monocytes % 3.3 Neutrophils # 16.0 H Neutrophils % 94.0 H Nucleated Red Blood Cells # 0.0 Nucleated Red Blood Cells % 0.0 Phosphorus Level 4.2 Platelet Count 160 Potassium Level 5.2 H Red Blood Count 4.55 L Red Cell Distribution Width 15.3 H Sodium Level 139 White Blood Count 17.0 #H Bedside Glucose 156 Medications Medications Current Medications Ceftriaxone Sodium (Rocephin) 50 ml @ 100 mls/hr DAILY IVPB Last administered on 10/20/16t 08:09; Admin Dose 100 MLS/HR; Start 10/18/16 at 09:00 Ondansetron HCl (Zofran Inj) 4 mg Q6H PRN IV NAUSEA AND/OR VOMITING; Start 10/18 at 09:00 Acetaminophen (Tylenol Tab) 650 mg Q6H PRN PO PAIN LEVEL 1-3 OR FEVER; Start at 09:00 Acetaminophen (Tylenol Supp) 650 mg Q6H PRN [place] PAIN LEVEL 1-3 OR FEVER; Start 10/18/16 at 09:00 Acetaminophen/ Hydrocodone Bitart ([place] (5/325)) 1 tab Q6H PRN PO MODERATE PAIN LEVEL 4-6 Last administered on 10/18/16 22:14; Admin Dose 1 TAB; Start 10/18 at 09:00 Acetaminophen/ Hydrocodone Bitart ([place] (5/325)) 2 tab Q6H PRN PO SEVERE PAIN LEVEL 7-10 Last administered on 10/20/16 08:19; Admin Dose 2 TAB; Start 10/18/16 at 09:00 Morphine Sulfate (morphine) 2 mg Q4H PRN IV SEVERE PAIN LEVEL 7-10 Last administered on 10/20/16 06:41; Admin Dose 2 MG; Start 10/18/16 at 09:00 Docusate Sodium (Colace) 100 mg Q12H PRN PO CONSTIPATION Last administered on 15:10; Admin Dose 100 MG; Start 10/18/16 at 09:00 Magnesium Hydroxide (Milk Of Mag) 30 ml DAILY PRN PO CONSTIPATION; Start at 09:00 Bisacodyl (Dulcolax Supp) 10 mg DAILY PRN [place] CONSTIPATION; Start 10/18/16 at 09: 00 Amlodipine Besylate (Norvasc) 5 mg BID PO Last administered on 10/20/16 08:08; Admin Dose 5 MG; Start 10/18/16 at 10:00 Hydralazine HCl 10 mg 10 mg Q4 PRN IV sbp>160; Start 10/18/16 at 10:00 Vancomycin HCl/ Sodium Chloride (Vancocin/NS) 250 ml @ 83.333 mls/ hr Q12H IVPB Last administered on 10/19/16 21:42; Admin Dose 83.333 MLS/HR; Start at 20:00 Salmeterol Xinafoate/ Fluticasone (Advair 250/50 Diskus) 1 inh BID INH Last administered on 10/20/16 08:08; Admin Dose 1 INH; Start 10/19/16 at 21:00 Diagnostic Test (Pha) (Accucheck) 1 ea 02 XX ; Start 10/20/16 at 02:00 Miscellaneous Information 1 ea NOTE XX ; Start 10/19/16 at 10:30 Glucose (Glutose) 15 gm Q15M PRN PO DECREASED GLUCOSE; Start 10/19/16 at 10:30 Glucose (Glutose) 22.5 gm Q15M PRN PO DECREASED GLUCOSE; Start 10/19/16 at 10:30 Dextrose (D50w Syringe) 25 ml Q15M PRN IV DECREASED GLUCOSE; Start 10/19/16 at 10:30 Dextrose (D50w Syringe) 50 ml Q15M PRN IV DECREASED GLUCOSE; Start 10/19/16 at 10:30 Glucagon (Glucagen) 1 mg Q15M PRN IM DECREASED GLUCOSE; Start 10/19/16 at 10:30 Glucose (Glutose) 15 gm Q15M PRN BUCCAL DECREASED GLUCOSE; Start 10/19/16 at 10: 30 Famotidine (Pepcid) 20 mg Q12 PO Last administered on 10/20/16t 08:08; Admin Dose 20 MG; Start 10/19/16 at 21:00 KAMALA BAH NP Oct 20, 2016 09:23
[2016-10-20] MEDS ORDERED: FUROSEMIDE 20 MG INJ IV ONE (09:30)
[2016-10-20] MEDS: VANCOMYCIN 1.25 GM in SOD CHLORIDE 0.9% 250 ML IVPB SCH ×2 (10:27→20:50)
[2016-10-20 10:31] VITALS: BP 147/95; PULSE 85
[2016-10-20 12:20] LABS: CREATINE KINASE 512 IU/L (23-200)
[2016-10-20 12:34] LABS: CK-MB 6.61 ng/ml (0.0-2.4)
[2016-10-20 12:54] LABS: TROPONIN-I < 0.012 ng/ml (0.00-0.12)
[2016-10-20 19:00] VITALS: BP 135/98; RESP 24
--- NOTE | 2016-10-20 22:31 | RADRPT ---
Echocardiogram Report Patient Name: GRAHAM CARRASCO Gender: Male Date: 1960 Study Date: 20-Oct-2016 Supervisor Filter Assembly: Ashish Arreola [facility] Location: 603 Ref. Physician: KAMALA BAH Quality: Adequate Procedures: Transthoracic echocardiogram with complete 2D, M-Mode, and doppler examination. Indications: Evaluate for any vegetation. 2D/M Mode Doppler Measurement Value Normal Ranges Measurement Value Normal Ranges LVIDd 2D 4.8 3.5 - 5.6 cm AV Peak Sumeet 2.0 m/sec LVIDs 2D 2.4 2.1 - 4.1 cm AV Peak PG 16.0 mmHg FS 2D 50.6 % LVOT Peak Sumeet 1.6 m/sec LVPWd 2D 0.9 0.6 - 1.1 cm LVOT Peak PG 10.0 mmHg IVSd 2D 1.0 0.6 - 1.1 cm MV E Peak Sumeet 1.0 m/sec IVS/LVPW 2D 1.1 MV A Peak Sumeet 1.0 m/sec AoR Diam 2D 2.9 2.0 - 3.7 cm MV E/A 1.0 LA/Ao 2D 1 0 - 1 MV Decel Time 261 msec EDV 2D 112.0 cm3 MV E/A 1.0 ESV 2D 13.5 cm3 TR Peak Sumeet 2.9 m/sec LA Dimen 2D 3.5 2.3 - 4.0 cm TR Peak PG 33.0 mmHg RVSP 41.0 mmHg Findings Left Ventricle: Normal left ventricular systolic function. Normal left ventricular cavity size. Normal left ventricular wall thickness. Ejection fraction is visually estimated at 65 %. Tissue Doppler/Mitral Doppler indices are consistent with impaired relaxation (Stage I diastolic dysfunction). Right Ventricle: Normal right ventricular size. Normal right ventricular systolic function. Left Atrium: The left atrium is normal in size. Right Atrium: The right atrium is normal in size. Mitral Valve: Normal appearance and function of the mitral valve with trace physiologic regurgitation. Aortic Valve: Aortic sclerosis without stenosis. Aortic cusps appear mildly calcified. Trace aortic valve regurgitation. Tricuspid Valve: Normal appearance and function of the tricuspid valve with trace physiologic regurgitation. Estimated peak PA systolic pressure 41 mmHg. Pericardium: Trivial pericardial effusion. Aorta: Normal aortic root. IVC: Dilated IVC with respiratory collapse consistent with elevated right atrial pressure. Conclusions Normal left ventricular systolic function. Normal left ventricular cavity size. Normal left ventricular wall thickness. Ejection fraction is visually estimated at 65 %. Tissue Doppler/Mitral Doppler indices are consistent with impaired relaxation (Stage I diastolic dysfunction). Normal right ventricular size. Normal right ventricular systolic function. The left atrium is normal in size. The right atrium is normal in size. No significant valvular stenosis or regurgitation seen. Estimated peak PA systolic pressure 41 mmHg. Trivial pericardial effusion. Electronically Signed By: Roger Tyler 20-Oct-2016 22:31:08 -0800 Patient Name: GRAHAM CARRASCO Study Date: 20-Oct-2016 [id number]
[2016-10-21] MEDS: METHYLPREDNISOLONE 125 MG INJ IV SCH ×3 (00:13→11:20)
[2016-10-21] MEDS: morphine 2 MG INJ IV PRN ×6 (00:21→22:12)
[2016-10-21] MEDS: IPRATROPIUM (NEB) 0.5 MG/2.5 ML AMP HHN SCH ×4 (01:56→21:00)
[2016-10-21] MEDS: ACCUCHECK XX SCH (02:00)
[2016-10-21] MEDS: LEVALBUTEROL (HFA) 15 GM INHALER INH SCH ×4 (02:43→20:12)
[2016-10-21] MEDS: HYDROCODONE/APAP (5/325) TAB PO PRN ×4 (05:30→20:12)
[2016-10-21 06:44] LABS: HEMATOCRIT 41.4 % (42.0-52.0); HEMOGLOBIN 13.9 g/dl (14.0-18.0); LYMPHOCYTES # 0.5 10^3/ul (0.8-2.9); LYMPHOCYTES % 3.2 % (15.0-51.0); MEAN CORPUSCULAR HEMOGLOBIN 31.3 pg (29.0-33.0); MEAN CORPUSCULAR HGB CONC 33.6 g/dl (32.0-37.0); MEAN CORPUSCULAR VOLUME 93.2 fl (82.0-101.0); MONOCYTE # 0.4 10^3/ul (0.3-0.9); MONOCYTES % 2.6 % (0.0-11.0); NEUTROPHIL # 13.9 10^3/ul (1.6-7.5); NEUTROPHILS % 94.2 % (39.0-77.0); PLATELET COUNT 164 10^3/UL (140-440); RED BLOOD COUNT 4.44 10^6/ul (4.70-6.10); RED CELL DISTRIBUTION WIDTH 15.2 % (11.5-14.5); UNCORRECTED WBC 14.8 10^3/ul (4.8-10.8); WHITE BLOOD COUNT 14.8 10^3/ul (4.8-10.8)
[2016-10-21 06:47] LABS: CONDITION 1; LH ANALYZER COMMENTS 1
[2016-10-21 06:54] LABS: POTASSIUM 5.2 mmol/L (3.5-5.1)
[2016-10-21 06:56] LABS: CREATININE 1.03 mg/dl (0.61-1.24)
[2016-10-21 06:57] LABS: CALCIUM 8.8 mg/dl (8.4-10.2)
[2016-10-21 07:12] LABS: MAGNESIUM 2.3 mg/dl (1.7-2.5); PHOSPHORUS 3.6 mg/dl (2.5-4.9)
[2016-10-21 07:34] VITALS: BP 130/90; RESP 16
[2016-10-21] MEDS: INSULIN ASPART [NOVOLOG] 3 ML PEN SC SCH ×4 (07:57→20:31)
[2016-10-21] MEDS: SALMETEROL/FLUTICASONE 250/50 INHA INH SCH ×2 (08:00→20:12)
[2016-10-21] MEDS: VANCOMYCIN 1.25 GM in SOD CHLORIDE 0.9% 250 ML IVPB SCH ×2 (08:00→20:12)
[2016-10-21] MEDS: AMLODIPINE 5 MG TAB PO SCH ×2 (08:44→20:13)
[2016-10-21] MEDS: FAMOTIDINE 20 MG TAB PO SCH ×2 (08:44→20:13)
[2016-10-21] MEDS: CEFTRIAXONE 2 GM/50 ML (PMX) 50 ML IVPB SCH (10:58)
--- NOTE | 2016-10-21 11:35 | CONS ---
Date/Time of Note Date/Time of Note DATE: 10/21/16 TIME: 11:32 Assessment/Plan Assessment/Plan Additional Assessment/Plan Assessment and recommendations; 1. Patient admitted with severe COPD exacerbation and acute bronchitis with slow clinical improvement. Continue current treatment. Consultation Date/Type/Reason Admit Date/Time Oct 18, 2016 at 08:40 Type of Consultation: Pulmonary 24 HR Interval Summary Free Text/Dictation Patient condition is about the same with perhaps very little interval improvement. Complains of cough without any sputum production. Denies any fever chills chest pain. General examination; elderly male currently in no distress sitting in a chair by bedside. Exam/Review of Systems Vital Signs Vitals Vital Signs Date Time Temp Pulse Resp B/P Pulse Ox O2 Delivery O2 Flow Rate FiO2 10/21/16 10:52 2.0 10/21/16 08:10 Nasal Cannula 10/21/16 07:34 98.3 84 16 130/90 97 10/18/16 13:13 97 Intake and Output 10/20/16 10/20/16 10/21/16 15:00 23:00 07:00 Intake Total 1820 ml 730 ml Balance 1820 ml 730 ml Exam H EENT examination; supple neck, pharynx is clear, no lymphadenopathy. No thyromegaly. JVD difficult to see because of thick negron. Chest examination; bilateral expiratory wheezing with perhaps slight interval improvement. S1-S2 audible, no murmurs. Regular rate and rhythm. Abdomen examination; soft, protuberant. Nontender. No organomegaly. Bowel sounds audible. Extremity examination; no peripheral edema. HOME PLANNING CONSULTANT SALESPERSON examination; no focal deficit. Results Result Diagram: 10/21/1617 10/21/16 0512 Results 24 hrs Laboratory Tests Test 10/20/16 11:55 10/20/16 12:02 10/20/16 17:20 10/20/16 18:50 Creatine Kinase 512 H Creatine Kinase Index 1.3 Creatinine Kinase MB (Mass) 6.61 H Troponin I < 0.012 Bedside Glucose 168 195 Vancomycin Level Trough 15.8 Test 10/20/16 20:05 10/21/16 05:12 10/21/16 05:17 10/21/16 07:29 Bedside Glucose 207 164 Anion Gap 16 Blood Urea Nitrogen 26 H Calcium Level 8.8 Carbon Dioxide Level 34 H Chloride Level 94 L Creatinine 1.03 Glucose Level 165 Potassium Level 5.2 H Sodium Level 139 Basophils # 0.0 Basophils % 0.0 Blood Morphology Comment Eosinophils # 0.0 Eosinophils % 0.0 Hematocrit 41.4 L Hemoglobin 13.9 L Lymphocytes # 0.5 L Lymphocytes % 3.2 L Magnesium Level 2.3 Mean Corpuscular Hemoglobin 31.3 Mean Corpuscular Hemoglobin Concent 33.6 Mean Corpuscular Volume 93.2 Mean Platelet Volume 9.0 Monocytes # 0.4 Monocytes % 2.6 Neutrophils # 13.9 H Neutrophils % 94.2 H Nucleated Red Blood Cells # 0.0 Nucleated Red Blood Cells % 0.0 Phosphorus Level 3.6 Platelet Count 164 Red Blood Count 4.44 L Red Cell Distribution Width 15.2 H White Blood Count 14.8 H Medications Medications Current Medications Ceftriaxone Sodium (Rocephin) 50 ml @ 100 mls/hr DAILY IVPB Last administered on 10/21/16 10:58; Admin Dose 100 MLS/HR; Start 10/18/16 at 09:00 Ondansetron HCl (Zofran Inj) 4 mg Q6H PRN IV NAUSEA AND/OR VOMITING; Start 10/18 at 09:00 Acetaminophen (Tylenol Tab) 650 mg Q6H PRN PO PAIN LEVEL 1-3 OR FEVER; Start at 09:00 Acetaminophen (Tylenol Supp) 650 mg Q6H PRN [place] PAIN LEVEL 1-3 OR FEVER; Start 10/18/16 at 09:00 Acetaminophen/ Hydrocodone Bitart ([place] (5/325)) 1 tab Q6H PRN PO MODERATE PAIN LEVEL 4-6 Last administered on 10/18/16 22:14; Admin Dose 1 TAB; Start 10/18 at 09:00 Acetaminophen/ Hydrocodone Bitart ([place] (5/325)) 2 tab Q6H PRN PO SEVERE PAIN LEVEL 7-10 Last administered on 10/21/16 11:28; Admin Dose 2 TAB; Start 10/18/16 at 09:00 Morphine Sulfate (morphine) 2 mg Q4H PRN IV SEVERE PAIN LEVEL 7-10 Last administered on 10/21/16 08:43; Admin Dose 2 MG; Start 10/18/16 at 09:00 Docusate Sodium (Colace) 100 mg Q12H PRN PO CONSTIPATION Last administered on 15:10; Admin Dose 100 MG; Start 10/18/16 at 09:00 Magnesium Hydroxide (Milk Of Mag) 30 ml DAILY PRN PO CONSTIPATION; Start at 09:00 Bisacodyl (Dulcolax Supp) 10 mg DAILY PRN OR CONSTIPATION; Start 10/18/16 at 09: 00 Amlodipine Besylate (Norvasc) 5 mg BID PO Last administered on 10/21/16 08:44; Admin Dose 5 MG; Start 10/18/16 at 10:00 Hydralazine HCl 10 mg 10 mg Q4 PRN IV sbp>160; Start 10/18/16 at 10:00 Vancomycin HCl/ Sodium Chloride (Vancocin/NS) 250 ml @ 83.333 mls/ hr Q12H IVPB Last administered on 10/21/16 08:00; Admin Dose 83.333 MLS/HR; Start at 20:00 Salmeterol Xinafoate/ Fluticasone (Advair 250/50 Diskus) 1 inh BID INH Last administered on 10/21/16 08:00; Admin Dose 1 INH; Start 10/19/16 at 21:00 Diagnostic Test (Pha) (Accucheck) 1 ea 02 XX ; Start 10/20/16 at 02:00 Miscellaneous Information 1 ea NOTE XX ; Start 10/19/16 at 10:30 Glucose (Glutose) 15 gm Q15M PRN PO DECREASED GLUCOSE; Start 10/19/16 at 10:30 Glucose (Glutose) 22.5 gm Q15M PRN PO DECREASED GLUCOSE; Start 10/19/16 at 10:30 Dextrose (D50w Syringe) 25 ml Q15M PRN IV DECREASED GLUCOSE; Start 10/19/16 at 10:30 Dextrose (D50w Syringe) 50 ml Q15M PRN IV DECREASED GLUCOSE; Start 10/19/16 at 10:30 Glucagon (Glucagen) 1 mg Q15M PRN IM DECREASED GLUCOSE; Start 10/19/16 at 10:30 Glucose (Glutose) 15 gm Q15M PRN BUCCAL DECREASED GLUCOSE; Start 10/19/16 at 10: 30 Famotidine (Pepcid) 20 mg Q12 PO Last administered on 10/21/16 08:44; Admin Dose 20 MG; Start 10/19/16 at 21:00 Methylprednisolone Sodium Succinate (Solu-Medrol) 60 mg Q6 IV Last administered on 10/21/16t 11:20; Admin Dose 60 MG; Start 10/20/16 at 12:00 DREAD SEARS Oct 21, 2016 11:35
--- NOTE | 2016-10-21 16:41 | PN ---
Date/Time of Note Date/Time of Note DATE: 10/21/16 TIME: 16:34 Assessment/Plan VTE Prophylaxis VTE Prophylaxis Intervention: heparin Lines/Catheters IV C[facility]ter Type [facility]from [facility] Urinary Cath still in place: No Assessment/Plan Assessment/Plan 1. Chronic obstructive pulmonary disease exacerbation. improving, tapering steroid 2. Essential hypertension. controlled 3. Pre-diabetes with a hemoglobin A1c of 6.3. Continue sliding scale insulin, specifically since the patient is on IV steroids that can cause hyperglycemia. 4. Mild rhabdomyolysis. Renal function is within normal limits. resolved 5. Sepsis with gram-positive bacteremia. on antibiotics 6. Dyslipidemia. 7.. Nicotine use. Cessation advised. Refused nicotine patch. 8. Homeless status. Social work consult obtained. 10. Deep venous thrombosis prophylaxis. heparin Subjective 24 Hr Interval Summary Free Text/Dictation still SOB, afebrile Exam/Review of Systems Vital Signs Vitals Vital Signs Date Time Temp Pulse Resp B/P Pulse Ox O2 Delivery O2 Flow Rate FiO2 10/21/16 13:52 20 96 Nasal Cannula 3.0 10/21/16 07:34 98.3 84 130/90 10/18/16 13:13 97 Intake and Output 10/20/16 10/20/16 10/21/16 15:00 23:00 07:00 Intake Total 1820 ml 730 ml Balance 1820 ml 730 ml Exam Constitutional: alert, oriented, well developed Psych: nl mood/affect, no complaints Head: atraumatic, normocephalic Eyes: EOMI, nl conjunctiva, nl lids ENMT: nl external ears & nose, nl lips & teeth, nl nasal mucosa & septum Neck: non-tender, supple Respiratory: clear to auscultation, diminished breath sounds Cardiovascular: nl pulses, regular rate and rhythm, No S3, No S4, No bruits, No diastolic murmur, No edema, No gallop, No irregular rhythm, No jugular venous distention (JVD), No murmurs/extra sounds, No other, No rub, No systolic murmur Gastrointestinal: nl liver, spleen, non-tender, soft, No ascites, No bowel sounds, No distended, No firm, No hepatomegaly, No mass , No other, No rebound or guarding, No splenomegaly, No surgical scars, No tender Musculoskeletal: nl extremities to inspection Extremities: normal pulses, No calf tenderness, No clubbing, No cyanosis, No edema, No other, No palpable cord, No pitting pedal edema, No tenderness Neurological: [employer] II-XII intact, nl mental status, nl speech, nl strength Results Result Diagram: 10/21/1651610/21/16511 Results 24 hrs Laboratory Tests Test 10/20/16 17:20 10/20/16 18:50 10/20/16 20:05 10/21/16 05:12 Bedside Glucose 195 207 Vancomycin Level Trough 15.8 Anion Gap 16 Blood Urea Nitrogen 26 H Calcium Level 8.8 Carbon Dioxide Level 34 H Chloride Level 94 L Creatinine 1.03 Glucose Level 165 Potassium Level 5.2 H Sodium Level 139 Test 10/21/16 05:17 10/21/16 07:29 10/21/16 11:50 Basophils # 0.0 Basophils % 0.0 Blood Morphology Comment Eosinophils # 0.0 Eosinophils % 0.0 Hematocrit 41.4 L Hemoglobin 13.9 L Lymphocytes # 0.5 L Lymphocytes % 3.2 L Magnesium Level 2.3 Mean Corpuscular Hemoglobin 31.3 Mean Corpuscular Hemoglobin Concent 33.6 Mean Corpuscular Volume 93.2 Mean Platelet Volume 9.0 Monocytes # 0.4 Monocytes % 2.6 Neutrophils # 13.9 H Neutrophils % 94.2 H Nucleated Red Blood Cells # 0.0 Nucleated Red Blood Cells % 0.0 Phosphorus Level 3.6 Platelet Count 164 Red Blood Count 4.44 L Red Cell Distribution Width 15.2 H White Blood Count 14.8 H Bedside Glucose 164 229 H Medications Medications Current Medications Ceftriaxone Sodium (Rocephin) 50 ml @ 100 mls/hr DAILY IVPB Last administered on 10/21/16t 10:58; Admin Dose 100 MLS/HR; Start 10/18/16 at 09:00 Ondansetron HCl (Zofran Inj) 4 mg Q6H PRN IV NAUSEA AND/OR VOMITING; Start 10/18 at 09:00 Acetaminophen (Tylenol Tab) 650 mg Q6H PRN PO PAIN LEVEL 1-3 OR FEVER; Start at 09:00 Acetaminophen (Tylenol Supp) 650 mg Q6H PRN ME PAIN LEVEL 1-3 OR FEVER; Start 10/18/16 at 09:00 Acetaminophen/ Hydrocodone Bitart ([place] (5/325)) 1 tab Q6H PRN PO MODERATE PAIN LEVEL 4-6 Last administered on 10/18/16 22:14; Admin Dose 1 TAB; Start 10/18 at 09:00 Acetaminophen/ Hydrocodone Bitart ([place] (5/325)) 2 tab Q6H PRN PO SEVERE PAIN LEVEL 7-10 Last administered on 10/21/16 11:28; Admin Dose 2 TAB; Start 10/18/16 at 09:00 Morphine Sulfate (morphine) 2 mg Q4H PRN IV SEVERE PAIN LEVEL 7-10 Last administered on 10/21/16 12:39; Admin Dose 2 MG; Start 10/18/16 at 09:00 Docusate Sodium (Colace) 100 mg Q12H PRN PO CONSTIPATION Last administered on 15:10; Admin Dose 100 MG; Start 10/18/16 at 09:00 Magnesium Hydroxide (Milk Of Mag) 30 ml DAILY PRN PO CONSTIPATION; Start at 09:00 Bisacodyl (Dulcolax Supp) 10 mg DAILY PRN ME CONSTIPATION; Start 10/18/16 at 09: 00 Amlodipine Besylate (Norvasc) 5 mg BID PO Last administered on 10/21/16 08:44; Admin Dose 5 MG; Start 10/18/16 at 10:00 Hydralazine HCl 10 mg 10 mg Q4 PRN IV sbp>160; Start 10/18/16 at 10:00 Vancomycin HCl/ Sodium Chloride (Vancocin/NS) 250 ml @ 83.333 mls/ hr Q12H IVPB Last administered on 10/21/16 08:00; Admin Dose 83.333 MLS/HR; Start at 20:00 Salmeterol Xinafoate/ Fluticasone (Advair 250/50 Diskus) 1 inh BID INH Last administered on 10/21/16 08:00; Admin Dose 1 INH; Start 10/19/16 at 21:00 Diagnostic Test (Pha) (Accucheck) 1 ea 02 XX ; Start 10/20/16 at 02:00 Miscellaneous Information 1 ea NOTE XX ; Start 10/19/16 at 10:30 Glucose (Glutose) 15 gm Q15M PRN PO DECREASED GLUCOSE; Start 2/6/17 at 10:30 Glucose (Glutose) 22.5 gm Q15M PRN PO DECREASED GLUCOSE; Start 10/19/16 at 10:30 Dextrose (D50w Syringe) 25 ml Q15M PRN IV DECREASED GLUCOSE; Start 10/19/16 at 10:30 Dextrose (D50w Syringe) 50 ml Q15M PRN IV DECREASED GLUCOSE; Start 10/19/16 at 10:30 Glucagon (Glucagen) 1 mg Q15M PRN IM DECREASED GLUCOSE; Start 10/19/16 at 10:30 Glucose (Glutose) 15 gm Q15M PRN BUCCAL DECREASED GLUCOSE; Start 10/19/16 at 10: 30 Famotidine (Pepcid) 20 mg Q12 PO Last administered on 10/21/16 08:44; Admin Dose 20 MG; Start 10/19/16 at 21:00 Methylprednisolone Sodium Succinate (Solu-Medrol) 60 mg Q6 IV Last administered on 10/21/16 11:20; Admin Dose 60 MG; Start 10/20/16 at 12:00 COCO CRUZ MD Oct 21, 2016 16:41
[2016-10-21] MEDS: METHYLPREDNISOLONE 40 MG INJ IV SCH (17:39)
[2016-10-21 19:33] VITALS: BP 154/80; RESP 18
[2016-10-21] MEDS ORDERED: HEPARIN 5,000 UNIT/0.5 ML SYG SC SCH (21:00)
[2016-10-22] MEDS: METHYLPREDNISOLONE 40 MG INJ IV SCH
--- NOTE | 2016-10-22 16:03 | DS ---
DATE OF ADMISSION: 10/18/2016 DATE OF DISCHARGE: 10/22/2016 (Left against medical advice.) WORKING DIAGNOSES: 1. Chronic obstructive pulmonary disease exacerbation. 2. Essential hypertension. 3. Pre-diabetes with hemoglobin A1c of 6.3. 4. Mild rhabdomyolysis. 5. Sepsis with gram-positive bacteremia. 6. History of dyslipidemia. 7. Nicotine use. 8. Homeless status. CONSULTANTS: 1. Dr. Félix Walters, pulmonary. 2. Dr. Alberto Rivera, pulmonology. HOSPITAL COURSE: This is a 55-year-old male with a past medical history of essential hypertension, dyslipidemia and COPD who came to [facility] because of symptoms of shortness of breath. The patient also reported an associated cough with whitish productive phlegm. The patient was noticed to be febrile in the emergency room with a temperature of 104.3 degrees Fahrenheit. Provided the patient's history of present illness, comorbidities, and the diagnostic findings, a clinical decision was made to admit the patient in inpatient setting to have him further evaluated. The patient was admitted to inpatient medical/surgical floor. Pulmonology consult was called on this patient. The patient was started on inhaled bronchodilators and tapering dose of steroids. The patient was started on empiric antibiotics for any underlying acute tracheobronchitis. The patient's blood culture x2 showed gram-positive bacteremia. The etiology of this remained unclear. However, the patient's repeat blood cultures remain negative. The patient also underwent a 2D echocardiogram to evaluate for any underlying vegetation and this was negative. The patient was also noted to have pre-diabetes. The patient's hemoglobin A1c was 6.3. Hence, the patient was started on sliding scale insulin. The patient also had mild rhabdomyolysis. However, the patient's renal function was within normal limits. The patient has history of dyslipidemia. However, the patient's fasting lipid panel was satisfactory. The patient is a current nicotine user. The patient refused nicotine patch during the patient's hospital stay. The patient was slowly responding to medical therapy. Meanwhile, the patient wanted to leave the hospital against medical advice. The patient was informed about the consequences of leaving the hospital against medical advice including the possibility of . Nevertheless, the patient wanted to leave the hospital against medical advice. No discharge planning was done and no discharge prescriptions were given since the patient left the hospital against medical advice. PERTINENT LABORATORY AND DIAGNOSTIC DATA: 1. CT angiogram of the chest. No pulmonary embolism. No aortic dissection or aneurysm. Emphysema. Biapical fibrosis. 2. Blood culture x2 from 10/18/2016. Positive for coagulase negative staph. 3. Latest CBC: WBC of 14.8, hemoglobin 13.9, hematocrit 41.4, platelet count 164. BMP: Sodium 139, potassium 5.2, chloride 94, carbon dioxide 34, anion gap 16, BUN 16, creatinine 1.03. Glucose 165, calcium 8.8. 4. Hemoglobin A1c 6.3. 5. Fasting lipid panel. Triglycerides 53, total cholesterol 152, LDL 96, AST of 45. 6. 2-D echocardiogram. Normal left ventricular systolic function. Normal left ventricular cavity size. Normal left ventricular wall thickness. Ejection fraction is visually estimated at 65 %. Tissue Doppler/Mitral Doppler indices are consistent with impaired relaxation (Stage I diastolic dysfunction). At this time, we would like to thank all the consultants for seeing the patient and providing clinical recommendations. The case and management of this patient was fully discussed with Dr. More. KAMALA MORE MD AM/NTS Conf#: [id number] DID#: [id number] CC: FÉLIX WALTERS MD; ALBERTO RIVERA MD;*EndCC* MTDD
== END 2016-10-22 00:30 | disposition left against medical advice (07) | DRG 871 ==
LOC: E/R 05:47 → MS2 08:40
PROVIDERS: ADMIT Hospitalist; ATTEND Hospitalist
DX: A41.1 Sepsis due to other specified staphylococcus (principal); J18.9 Pneumonia, unspecified organism; J96.90 Respiratory failure, unspecified, unspecified whether with hypoxia or hypercapnia; M62.82 Rhabdomyolysis; J44.0 Chronic obstructive pulmonary disease with (acute) lower respiratory infection; J44.1 Chronic obstructive pulmonary disease with (acute) exacerbation; Z59.0 Homelessness; I10 Essential (primary) hypertension; F17.210 Nicotine dependence, cigarettes, uncomplicated; R73.03 Prediabetes; J20.9 Acute bronchitis, unspecified; R65.20 Severe sepsis without septic shock; J43.9 Emphysema, unspecified
CPT/HCPCS: 36415; 36600; 71010; 71275; 80048; 80053; 80061; 80202; 80307; 81003; 82550; 82553; 82803; 82962; 83036; 83605; 83735; 84100; 84436; 84443; 84479; 84484; 85025; 85610; 85730; 86850; 86900; 86901; 87040; 87086; 90686; 93005; 93306; 94640; 94644; 94664; 96361; 96365; 96366; 96367; 96375; J1940; J0456; J1815; J1956; J2270; J2920; J2930; J3370; J7030; J7040; J7050; Q9967